=== PATIENT | male | born 1955 | race Caucasian/White ===

== ENCOUNTER 2024-10-08 21:34 | Emergency (ER) | payer MEDICAID, OTHER ==
[~2024-10-08] VITALS: Ht 160 cm; Wt 66.4 kg
[2024-10-08 21:45] VITALS: TEMP 37.2; O2SAT 98
[2024-10-08 21:46] VITALS: RESP 16; O2SAT 98
[2024-10-09 00:08] VITALS: BP 116/71; PULSE 68
[2024-10-09] MEDS: CYCLOBENZAPRINE 10MG TABLET PO ONE (00:08)
[2024-10-09] MEDS: KETOROLAC 15MG/ML VIAL IM ONE (00:08)
[2024-10-09] MEDS: LIDOCAINE 5% PATCH TOP SCH (00:08)
[2024-10-09] MEDS ORDERED: LIDO-53 TP (00:18)
[2024-10-09] MEDS ORDERED: NAPR-1176 MT (00:18)
== END 2024-10-09 00:32 | disposition home or self-care (01) ==
LOC: ER 21:34
DX: M54.31 Sciatica, right side (principal); E11.9 Type 2 diabetes mellitus without complications; I10 Essential (primary) hypertension; Z79.1 Long term (current) use of non-steroidal anti-inflammatories (NSAID)
CPT/HCPCS: 99283; 96372; J1885